=== PATIENT | male | born 1965 | race Caucasian/White ===

== ENCOUNTER 2021-04-02 08:22 | Emergency (ER) | payer BC, SELFPAY ==
[2021-04-02 08:44] VITALS: BP 143/84; PULSE 79; RESP 18; TEMP 36.6; O2SAT 99
--- NOTE | 2021-04-02 09:18 | ED.URI ---
HPI - URI/Sore Throat General Chief Complaint: Upper Respiratory Infection Stated Complaint: Sore Throat Source: patient and RN notes reviewed Limitations: no limitations History of Present Illness HPI Narrative: The unvaccinated patient, a smoker/nondrinker with prior history of RA on Rinvoq, MTX, presents with a 1 day history of sore throat and mild hoarseness. He stop smoking 1/2-week ago [ symptoms may be of that duration ]; no fever, cough, loss of taste/smell, S OB, vomiting/diarrhea, CP, rash. Symptoms are mild, worse swallowing Related Data Home Medications Medication Instructions Recorded Confirmed amlodipine 5 mg PO DAILY 04/02/21 04/02/21 folic acid 1 mg PO DAILY 04/02/21 04/02/21 gabapentin 100 mg PO BID 04/02/21 04/02/21 meloxicam 15 mg PO DAILY 04/02/21 04/02/21 methotrexate sodium 2.5 mg PO DAILY 04/02/21 04/02/21 upadacitinib [Rinvoq] 15 mg PO DAILY 04/02/21 04/02/21 Allergies Allergy/AdvReac Type Severity Reaction Status Date / Time No Known Allergies Allergy Unverified 04/02/21 08:41 Review of Systems Review of Systems: General/Constitutional: No weight loss,fever Eyes: N0: Redness,discharge Ears/Nose/Throat: No: Epistaxis,ear discharge Respiratory: Denies: Hemoptysis Gastrointestinal: No Vomiting, Bleeding-rectal Skin: No Lumps, eruption Neurologic: No Focal Weakness,Sz Hematologic: Denies: Petechiae/Purpura Psychiatric: No: Suicida ideationl All Other Systems: Reviewed and Negative PMFSH Family History Family History (Updated 12/29/18 @ 14:46 by DOCTOR UNKNOWN) Sibling Diabetes mellitus Social History Social History Smoking status: Current every day smoker Alcohol intake: never Comments At time of signature, agree with nursing past medical, surgical, social and family history. There is no relevant family history pertinent to the presenting complaint Exam Narrative: General Appearance: Well appearing, Well nourished EYE: PERRLA, Conjunctiva clear Ears: Auditory canal normal, TM normal Nose: Rhinorrhea, Mucousal erythema Mouth/Throat: MM moist, Uvula midline, Pharyngeal erythema slight uvular edema Neck: Supple, No adenopathy Respiratory: No respiratory distress, Breath sounds equal, Clear to auscultation Cardiovascular: RRR, No JVD Musculoskeletal: Non tender, Normal strength Skin: Warm, Dry Neurological: A&O x3, CN II-XII intact Psychiatric: Normal mood, Normal affect Course Vital Signs Vital signs: Vital Signs Temperature 97.9 F 04/02/21 08:44 Pulse Rate 79 04/02/21 08:44 Respiratory Rate 18 04/02/21 08:44 Blood Pressure 143/84 H 04/02/21 08:44 Pulse Oximetry 99 04/02/21 08:44 Temperature 97.9 F 04/02/21 08:44 Pulse Rate 79 04/02/21 08:44 Respiratory Rate 18 04/02/21 08:44 Blood Pressure 143/84 H 04/02/21 08:44 Pulse Oximetry 99 04/02/21 08:44 Discharge Plan Discharge Clinical Impression: Odynophagia Patient Disposition: Home, Self-Care Condition: Stable Instructions: Antibiotic Form, Pharyngitis (ED) Prescriptions: New azithromycin 250 mg tablet See Rx Instructions .ROUTE .COMPLEX Qty: 6 RF: 0 lidocaine HCl [Lidocaine Viscous] 2 % solution 5 ml MUCOUS MEM QID PRN (Reason: pain) Qty: 100 RF: 0 azelastine 137 mcg (0.1 %) aerosol,spray 137 mcg NASAL Q12H Qty: 30 RF: 0 No Action meloxicam 15 mg tablet 15 mg PO DAILY RF: 0 amlodipine 5 mg tablet 5 mg PO DAILY RF: 0 methotrexate sodium 2.5 mg tablet 2.5 mg PO DAILY RF: 0 folic acid 1 mg tablet 1 mg PO DAILY RF: 0 gabapentin 100 mg capsule 100 mg PO BID RF: 0 Rinvoq 15 mg tablet extended release 24 hr 15 mg PO DAILY RF: 0 Other Ambulatory Orders: SARS-CoV-2 RNA, Qual RT-PCR (Routine) Location: Determined by Patient Ordered By: Henri Valdez Follow-up/Referrals: PHYSICIAN NOT ON STAFF,NONSTAFF [Primary Care Provider] - Stand Alone Forms: Work/School Releas
== END 2021-04-02 09:25 | disposition home or self-care (01) ==
PROVIDERS: Emergency Provider Emergency Medicine
DX: R13.10 Dysphagia, unspecified (principal); F17.200 Nicotine dependence, unspecified, uncomplicated; Z20.822 Contact with and (suspected) exposure to COVID-19
CPT/HCPCS: 87426; 99213; C9803; G0463

== ENCOUNTER → 2021-04-03 03:10 | Outpatient (CLI) | payer BC, SELFPAY ==
[2021-04-04 01:26] LABS: SARS-CoV-2 RNA PCR Positive
== END ==
PROVIDERS: PCP Obstetrics & Gynecology; Visit Provider Emergency Medicine
DX: U07.1 COVID-19 (principal); J02.9 Acute pharyngitis, unspecified
CPT/HCPCS: C9803; U0003; U0005